=== PATIENT | male | born 2005 | race Hispanic/Latino ===

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

== ENCOUNTER 2023-08-24 22:31 | Emergency (ER) | payer OTHER ==
[~2023-08-24] VITALS: Ht 177.8 cm; Wt 144.4 kg
[2023-08-24] MEDS: ACETAMINOPHEN 325 MG/10.15ML UDCUP PO ONE (22:44)
[2023-08-24 23:06] LABS: SARS-CoV-2, RNA, NAAT NEGATIVE SARS CoV-2 (NEGATIVE)
[2023-08-24 23:09] LABS: INFLUENZA TYPE A Negative For Type A (NEGATIVE); INFLUENZA TYPE B Negative For Type B (NEGATIVE)
[2023-08-24 23:48] LABS: APPEARANCE,URINE CLOUDY (CLEAR); BILIRUBIN,URINE NEGATIVE (NEGATIVE); COLOR,URINE LIGHT-YELLOW (YELLOW); GLUCOSE, URINE (UA) NEGATIVE (NEGATIVE); KETONES,URINE NEGATIVE (NEGATIVE); LEUKOCYTE ESTERASE ,URINE NEGATIVE Leu/uL (NEGATIVE); NITRATE,URINE NEGATIVE (NEGATIVE); OCCULT BLOOD,URINE NEGATIVE (NEGATIVE); PROTEIN,URINE NEGATIVE (NEGATIVE); UROBILINOGEN,URINE 0.2 mg/dL (0.2-1.0)
[2023-08-24 23:49] LABS: ADD UA MICROSCOPIC YES
[2023-08-24 23:52] LABS: BACTERIA,URINE FEW /HPF (None Seen); MUCUS,URINE RARE LPF (None Seen); SQUAMOUS EPITHELIAL CELL,UR RARE /HPF (0-2)
[2023-08-24] MEDS ORDERED: MOXIOS OD (23:57)
[2023-08-24] MEDS ORDERED: CETI1SOL17 PO (23:57)
[2023-08-25] VITALS: BP 154/86; PULSE 88; RESP 20; TEMP 99; O2SAT 98
== END 2023-08-25 00:08 | disposition home or self-care (01) ==
LOC: EDH 22:31
DX: H10.89 Other conjunctivitis (principal); J06.9 Acute upper respiratory infection, unspecified; R50.9 Fever, unspecified; M54.50 Low back pain, unspecified; F20.9 Schizophrenia, unspecified; F31.9 Bipolar disorder, unspecified; F84.0 Autistic disorder; Z20.822 Contact with and (suspected) exposure to COVID-19; Z79.899 Other long term (current) drug therapy
CPT/HCPCS: 81001; 87635; 87804